=== PATIENT | female | born 1985 | race Caucasian/White ===

== ENCOUNTER 2017-01-02 10:32 | Inpatient (IN) | payer MEDICAID ==
[2017-01-02] MEDS ORDERED: SODIUM CHLORIDE FLUSH 0.9% 10 ML SYRINGE IVP ONE (10:35)
[2017-01-02] MEDS ORDERED: LACTATED RINGERS 1,000 ML IV ONE (10:46)
[2017-01-02] MEDS ORDERED: fentaNYL 100 MCG/2 ML VIAL ONE ×2 (11:02→11:38)
[2017-01-02] MEDS ORDERED: SUFENTA/BUPIV 0.4 MCG/0.0625% 150 ML EP ONE (11:30)
[2017-01-02] MEDS ORDERED: fentaNYL 100 MCG/2 ML VIAL IVP PRN (11:43)
[2017-01-02] MEDS ORDERED: LACTATED RINGERS 1,000 ML IV SCH (12:00)
[2017-01-02] MEDS ORDERED: NALOXONE 0.4 MG/ML VIAL IVP PRN ×2 (12:53→12:57)
[2017-01-02] MEDS ORDERED: NALBUPHINE 20 MG/ML AMP IVP PRN ×2 (12:53→12:57)
[2017-01-02] MEDS ORDERED: LACTATED RINGERS 500 ML IV ONE ×2 (12:53→12:57)
[2017-01-02] MEDS ORDERED: ONDANSETRON 4 MG/2 ML VIAL IVP PRN ×2 (12:53→12:57)
[2017-01-02] MEDS ORDERED: diphenhydrAMINE INJ 50 MG/ML VIAL IVP PRN ×2 (12:53→12:57)
[2017-01-02] MEDS ORDERED: ePHEDrine 50 MG/ML AMP IVP PRN ×2 (12:53→12:57)
[2017-01-02] MEDS ORDERED: METOCLOPRAMIDE 10 MG/2 ML VIAL IVP PRN ×2 (12:53→12:57)
[2017-01-02] MEDS ORDERED: SUFENTA/BUPIV 0.4 MCG/0.0625% 150 ML EP PRN (12:57)
[2017-01-02] MEDS ORDERED: OXYTOCIN/LACTATED RINGERS 250 ML IV SCH (14:00)
[2017-01-02] MEDS ORDERED: diphenhydrAMINE 25 MG CAPSULE PO PRN (21:19)
[2017-01-02] MEDS ORDERED: HYDROcod/ACETAM 5/325 MG TABLET PO PRN (21:19)
[2017-01-02] MEDS ORDERED: MAGNESIUM HYDROXIDE 2,400 MG/30 ML UDC PO PRN (21:19)
[2017-01-02] MEDS ORDERED: OXYTOCIN/LACTATED RINGERS 250 ML IV ONE (21:19)
[2017-01-02] MEDS ORDERED: miSOPROStol 100 MCG TABLET PR ONE (21:29)
[2017-01-02] MEDS ORDERED: miSOPROStol 200 MCG TABLET ONE (23:00)
[2017-01-03] MEDS: IBUPROFEN 600 MG TABLET PO SCH ×4 (00:37→22:48)
[2017-01-03] MEDS: LACTATED RINGERS 1,000 ML IV SCH ×2 (04:19→08:32)
[2017-01-03] MEDS ORDERED: OXYTOCIN/LACTATED RINGERS 250 ML IV ONE (04:46)
[2017-01-03] MEDS: ACETAMINOPHEN 325 MG TABLET PO PRN ×4 (05:03→22:48)
[2017-01-03] MEDS: DOCUSATE SODIUM 100 MG CAPSULE PO SCH ×2 (08:33→19:42)
[2017-01-04] MEDS: IBUPROFEN 600 MG TABLET PO SCH (08:04)
[2017-01-04] MEDS: ACETAMINOPHEN 325 MG TABLET PO PRN (08:04)
[2017-01-04] MEDS: DOCUSATE SODIUM 100 MG CAPSULE PO SCH (08:05)
[2017-01-04] MEDS ORDERED: MEASLES,MUMPS & RUBELLA VACC 0.5 ML VIAL SUBQ ONE (14:00)
== END 2017-01-04 14:10 | disposition home or self-care (01) | DRG 774 ==
PROC: 10E0XZZ Delivery of Products of Conception, External Approach (ICD-10-PCS; principal; 2017-01-02)
DX: O63.0 Prolonged first stage (of labor) (principal); O72.1 Other immediate postpartum hemorrhage; O69.2XX0 Labor and delivery complicated by other cord entanglement, with compression, not applicable or unspecified; O90.81 Anemia of the puerperium; D50.0 Iron deficiency anemia secondary to blood loss (chronic); Z53.29 Procedure and treatment not carried out because of patient's decision for other reasons; Z3A.40 40 weeks gestation of pregnancy; Z37.0 Single live birth

== ENCOUNTER 2017-05-03 13:45 | Outpatient (CLI) | payer MEDICAID ==
[2017-05-03 18:21] LABS: BASOPHILS % (AUTO) 0.4 %; EOSINOPHILS # (AUTO) 0.3 10^3/uL (0.0-0.7); EOSINOPHILS % (AUTO) 3.3 %; HCT - HEMATOCRIT 38.8 % (37.0-47.0); HGB - HEMOGLOBIN 12.9 g/dL (12.0-16.0); LYMPHOCYTES % (AUTO) 24.9 %; MEAN CORPUSCULAR HEMOGLOBIN 23.9 pg (27.0-31.0); MEAN CORPUSCULAR HGB CONC 33.2 g/dL (32.0-36.0); MEAN PLATELET VOLUME 9.1 fL (7.9-10.8); MONOCYTES # (AUTO) 0.4 10^3/uL (0.0-1.0); MONOCYTES % (AUTO) 4.9 %; NEUTROPHILS # (AUTO) 5.3 10^3/uL (1.5-6.6); NEUTROPHILS % (AUTO) 66.5 %; RED BLOOD COUNT 5.38 10^6/uL (4.20-5.40); UNCORRECTED WHITE BLOOD COUNT 7.9 x10^3/uL; WHITE BLOOD COUNT 7.9 x10^3/uL (4.8-10.8)
[2017-05-03 18:27] LABS: ALBUMIN/GLOBULIN RATIO 1.5 (1.0-2.2); BILIRUBIN,TOTAL 0.2 mg/dL (0.2-1.0); CALCIUM 9.4 mg/dL (8.5-10.3); CREATININE 0.8 mg/dL (0.4-1.0); POTASSIUM 3.6 mmol/L (3.5-5.0)
== END 2017-05-03 13:46 | disposition home or self-care (01) ==
LOC: LAB.F 13:45
PROVIDERS: ATTEND Nurse Practitioner Family
DX: F41.9 Anxiety disorder, unspecified (principal)
CPT/HCPCS: 36415; 80050